=== PATIENT | female | born 1980 | race Caucasian/White ===

== ENCOUNTER 2022-08-08 07:52 | Outpatient (CLI) | payer BC, SELFPAY ==
[2022-08-08 15:11] LABS: Albumin* 4.4 g/dL (3.3-5.0)
[2022-08-08 15:12] LABS: Chloride* 105 mmol/L (96-114); Sodium* 140 mmol/L (135-149)
[2022-08-08 15:14] LABS: Bilirubin Total* 0.7 mg/dL (0.1-1.5); Carbon Dioxide* 28 mmol/L (20-32); Cholesterol* 176 mg/dL (90-199); Creatinine* 0.7 mg/dL (0.5-1.5); Estimated Glomerular Filt Rate 111 ml/min
[2022-08-08 15:15] LABS: Alanine Aminotransferase* 56 U/L (4-35); Alkaline Phosphatase* 47 U/L (40-150); Aspartate Amino Transferase* 36 U/L (12-35); Blood Urea Nitrogen* 14 mg/dL (5-24); Glucose* 113 mg/dL (60-115); HDL Cholesterol* 34 mg/dL (>=50); LDL Cholesterol Calculated 75 mg/dL (<100); Total Protein* 7.3 g/dL (6.0-8.3); Triglycerides* 337 mg/dL (40-149)
== END 2022-08-08 07:53 | disposition home or self-care (01) ==
PROVIDERS: PCP Physician Assistant Medical; Visit Provider Physician Assistant Medical
DX: Z00.00 Encounter for general adult medical examination without abnormal findings (principal); R79.89 Other specified abnormal findings of blood chemistry; E78.1 Pure hyperglyceridemia; R73.01 Impaired fasting glucose; I10 Essential (primary) hypertension
CPT/HCPCS: 80053; 80061

== ENCOUNTER 2023-01-11 14:16 | Outpatient (CLI) | payer BC, SELFPAY | END 2023-01-11 14:17 | disposition home or self-care (01) | PROVIDERS: PCP Physician Assistant Medical; Visit Provider Physician Assistant Medical | DX: R73.01 Impaired fasting glucose (principal); R79.89 Other specified abnormal findings of blood chemistry; I10 Essential (primary) hypertension; M54.50 Low back pain, unspecified; R00.2 Palpitations; R20.2 Paresthesia of skin | CPT/HCPCS: 80053; 82607; 82784; 83516; 84443; 86039; 86140; 86200; 86431; 86812 ==

== ENCOUNTER 2023-01-19 08:08 | Outpatient (CLI) | payer BC, SELFPAY ==
--- NOTE | 2023-01-19 08:15 | CRLHL7_ITS ---
For Patients: As a result of the Century Cures Act, medical imaging exams and procedure reports are released immediately into your electronic medical record. You may view this report before your referring provider. If you have questions, please contact your health care provider. INDICATION: Foot pain. COMPARISON: None provided. TECHNIQUE: Axial and coronal PD and PD fat sat and sagittal T1 and STIR sequences. FINDINGS: Periarticular tendons have appropriate caliber and signal with no tenosynovitis. Ligaments of the ankle are normal. No sinus tarsus syndrome. No fracture or bone lesion in the hindfoot or midfoot. Mild shallow subcortical marrow edema signal at the os calcis. Roughly 12 mm length of thickening of plantar fascia to a maximal thickness of 7-8 mm with mild patchy intermediate signal degeneration appearance without high-grade partial or full-thickness tear. No muscle atrophy. Lateral bundle looks normal. Degenerative subchondral sclerosis and small cysts at the dorsal margin of the 1st cuneiform articulation with metatarsal. Minimal marginal osteophytes. The other tarsometatarsal midfoot joints look normal. Trace nonspecific effusion at the calcaneocuboid joint. IMPRESSION: 1. Moderate probably subacute medial bundle plantar fasciitis. 2. Mild early onset degenerative or posttraumatic arthrosis dorsal margin of the 1st tarsometatarsal joint. Dictated by Hola Guzman MD @ 01/20/2023 1:29:13 PM (Electronically Signed)
== END 2023-01-19 08:09 | disposition home or self-care (01) ==
LOC: MRI 08:08
PROVIDERS: PCP Physician Assistant Medical; Visit Provider Physician Assistant Medical
DX: M79.671 Pain in right foot (principal); M19.071 Primary osteoarthritis, right ankle and foot
CPT/HCPCS: 73718

== ENCOUNTER 2023-04-06 12:31 | Outpatient (CLI) | payer BC, SELFPAY | END 2023-04-06 12:32 | disposition home or self-care (01) | PROVIDERS: PCP Physician Assistant Medical; Visit Provider Physician Assistant Medical | DX: I10 Essential (primary) hypertension (principal); M79.2 Neuralgia and neuritis, unspecified; R73.01 Impaired fasting glucose; R78.1 Finding of opiate drug in blood; R79.89 Other specified abnormal findings of blood chemistry | CPT/HCPCS: 82088; 82746; 83540; 83550; 84244; 84425 ==

== ENCOUNTER 2023-04-18 13:33 | Outpatient (CLI) | payer BC, SELFPAY ==
--- NOTE | 2023-04-18 13:45 | CRLHL7_ITS ---
For Patients: As a result of the Century Cures Act, medical imaging exams and procedure reports are released immediately into your electronic medical record. You may view this report before your referring provider. If you have questions, please contact your health care provider. INDICATION: Skin anesthesia. TECHNIQUE : Lumbar spine MRI without contrast. The following sequences were obtained: Sagittal T1, T2 weighted and STIR sequences. Axial T1 and T2 weighted sequences. COMPARISON: Lumbar spine radiographs from 01/11/2023. FINDINGS : Five lumbar type vertebral bodies, with the last fully formed disc space designated as L5-S1. Normal lumbar lordotic curve. No recent compression fracture or marrow replacing process. Lower cord/conus signal is normal. The conus terminates at a normal location. No intradural lesion. No extraspinal soft tissue abnormalities. Discs/Endplates: Mild disc height loss/disc desiccation and small Schmorl`s nodes at T12-L1, L1-2 and L3-4. Disc desiccation at L4-5. The remaining discs exhibit normal height and signal. Mild type 1 reactive marrow changes at L1-2 posteriorly and L3-4 anteriorly.. Findings at individual levels as follows: T11-12: No spinal canal or neural foraminal stenosis. T12-L1: Mild disc bulge with a small left central protrusion component which flattens the thecal sac. No spinal canal or neural foraminal stenosis. L1-2: Shallow left subarticular protrusion/osteophyte minimally flattens the thecal sac. No spinal canal or neural foraminal stenosis. L2-3: No spinal canal or neural foraminal stenosis. L3-4: Moderate disc bulge. Bilateral facet arthrosis. Mild spinal canal stenosis and mild bilateral neural foraminal stenosis. L4-5: Mild disc bulge. Bilateral low-grade facet arthrosis. No spinal canal or neural foraminal stenosis. L5-S1: No spinal canal or neural foraminal stenosis. Imaged SI joints: Within normal limits. Imaged sacrum: Within normal limits. IMPRESSION: 1. Scattered lumbar spondylosis without high-grade spinal canal/neural foraminal stenosis or chari impingement of neural structures. 2. At L1-2, active on chronic disc degeneration with mild type 1 reactive marrow changes along the posterior endplates. 3. At L3-4, mild spinal canal stenosis and mild bilateral neural foraminal stenosis. Dictated by Simba Palomino MD @ 04/19/2023 3:51:57 PM (Electronically Signed)
== END 2023-04-18 13:34 | disposition home or self-care (01) ==
LOC: MRI 13:34
PROVIDERS: PCP Physician Assistant Medical; Visit Provider Physician Assistant Medical
DX: R20.0 Anesthesia of skin (principal); R20.2 Paresthesia of skin; M51.36 Other intervertebral disc degeneration, lumbar region; M48.061 Spinal stenosis, lumbar region without neurogenic claudication
CPT/HCPCS: 72148

== ENCOUNTER 2023-08-02 20:58 | Outpatient (CLI) | payer BC, SELFPAY ==
--- NOTE | 2023-08-30 10:03 | W.PM.SLEEP ---
Sleep Study Details Details Interpreting Provider: Lauren Date of Sleep Study: 08/02/23 Sleep Study Details: STUDY TYPE:? Hospital-based attended BMI: 33 ORDERING PROvider Serg INDICATION:? Concerns about sleep apnea ? SLEEP SUMMARY:? 433.5 minutes total sleep time RESPIRATORY SUMMARY:? Mean oxygen awake 95 asleep 94, minimum 81. 5.1 minutes oxygen between 80 and 88% AHI 14.8, supine AHI 32, nonsupine AHI 5.7. Supine REM AHI 56.6 PERIODIC LIMB MOVEMENTS OF SLEEP:? None noted CARDIAC:? Awake 80, asleep 72. PVC noted IMPRESSION:? Mild to moderate obstructive sleep apnea with significant supine position and REM dependency RECOMMENDATION: Treatment options include CPAP, dental appliance and/or airway expansion surgery.
== END 2023-08-02 20:59 | disposition home or self-care (01) ==
LOC: SLEEP 20:58
PROVIDERS: PCP Physician Assistant Medical; Visit Provider Physician Assistant Medical
DX: G47.33 Obstructive sleep apnea (adult) (pediatric) (principal)
CPT/HCPCS: 95810

== ENCOUNTER 2023-11-13 10:02 | Outpatient (CLI) | payer BC, SELFPAY ==
--- OUTSIDE RECORDS SUMMARY | 2023-11-13 10:07 | XMS_ITS | Encounter Summary ---
Author Name Unknown Organization [place] Address [address] [place] [address]. [place] [address] Care Team Providers Care Rotary Driller Prospecting Name Role Phone [facility] Pr ovider Surya Shah MD Unavailable [phone] Encounter Details Date Type Department Care Team (Late st Contact Info) Description 11/11/2021 Orders Only [facility] [address] [place] [id number] Neelima Rangel MD [facility] [address] [address] Pre-operative laboratory examination (Primary Dx) Social History Tobacco Use Types Packs/Day Years Used Date Smoking Tobacco: Never Smokeless Tobacco: Never Alcohol Use Standard Drinks/Week Comments Yes 0 (1 standard drink = 0.6 oz pure alcohol) 2 glasses of wine weekly. none during Sex and Gender Information Value Date Recorded Sex Assigned at Female 11/12/2020 5:48 AM CDT Gender Identity Female 11/12/2020 5:48 AM CDT Sexual Orientation Straight 11/12/2020 5: 48 AM CDT documented as of this encounter Plan of Treatment Not on file documented as of this encounter Visit Diagnoses Diagnosis Pre-operative laboratory examination- Primary Pre-procedural laboratory examination documented in this encounter Care Teams Rotary Driller Prospecting Relationship Specialty Start Date End Date [facility] [address] [facility] [place] [address] PCP - General 08/02/13 Surya Shah MD [address] [facility] [place] [address] MD Ar[place]o 02/22/16 documented as of this encounter
--- OUTSIDE RECORDS SUMMARY | 2023-11-13 10:07 | XMS_ITS | Continuity of Care Document ---
Author Name Unknown Organization [facility] Address [address] [place] [address] Phone Care Team Providers Care Bit Tripoler Name Role Phone Mark Stephen Unavailable Unavailable Allergies, Adverse Reactions, Alerts Substance Reaction Status Criticality No Known Allergies Active No Inform ation Medications Medication Instructions Dosage Effective Dates (start - stop) Status Comments LOSARTAN-HYDROCHLOROTH IAZIDE (unknown strength) Not Available - Active Procedures Procedure Date Office/Outpatient Visit,[facility] 2022 Advance Directives Directive Yes / No Effective Date File Name No Information Encounters Encounter Description Practice Location Reason(s) For Visit Diagnoses Date Provider Providers Copied on Encounter Office/Outpat ient Visit,New, [facility], [address], [place], [place], [id number] , [place] tel:[phone] [facility] Spinal stenosis, lumbar region without neurogenic claudicationOther intervertebral disc degeneration, lumbar region 3 Panvica Mark. [facility], [address] [place] [address], [address], [place], [place], [id number] , [place]. tel:[phone] Referring Provider: Neelima Ulrich, [facility] [address] [place] [address], [address]. tel:[phone] Family History Family Member Type Diagnosis Age At Onset No Information Payers Payer name Insurance type Covered green party ID Authoriza timichelle(s) BCBS [id number] CCS/TPA BL [id number] Social History Type Description Quantity Date Captured Comments Alcohol Use Details Unknown Caffeine Use Details Unknown Tobacco Use Status Current non-smoker Smoking Status Never smoker Non-Smoking Tobacco Use Details : No Details Available : No Details Available Sex Female Chief Complaint And Reason For Visit No Information Reason For Referral Reason For Referral No Information History Of Present Illness Encounter Date Complaint History Of Prese nt Illness No Information Functional Status Date Functional Assessmen t No Information Instructions Date Instruction Additional Infor mation No Information Assessments Type Assessment Date assessment Spinal stenosis, lumbar region w ithout neurogenic claudication assessment Other intervertebral disc degene ration, lumbar region Patient Care Teams Name Effective Dates (start - stop) Status Members No Information
--- OUTSIDE RECORDS SUMMARY | 2023-11-13 10:07 | XMS_ITS | Referral Summary ---
Author Name Unknown Organization [facility] Address [address] [place] [address] Care Team Providers Care Blood Bank Assistant Name Role Phone Clinic, [facility] Pr ovider Surya Shah MD Unavailable [phone] Allergies Active Allergy Reactions Criticality Noted Date Comments Chocolate 09/28/2015 No Known Drug Allergy 02/03/2003 Medications Medication Sig Dispensed Refills Start Date End Date Status cetirizine (ZYRTEC) 10 MG tablet Take 10 mg by mouth daily Active ibuprofen (ADVIL,MOTRIN) 400 MG tabletIndications:S VD (spontaneous vaginal delivery) Take 1-2 tablets (400-800 mg) by mouth every 6 hours as needed for other (cramping) 120 tablet 09/30/2015 Active hydrochlorothiazide (HYDRODIURIL) 12.5 MG tablet Take 25 mg by mouth daily Active losartan (COZAAR) 25 MG tablet Take 100 mg by mouth daily Active oxyCODONE (ROXICODONE) 5 MG tabletIndications:A nal fissure Take 1 tablet (5 mg) by mouth every 6 hours as needed for moderate to severe pain 6 tablet 11/24/2021 Active diltiazem 2% in PLO gelIndications:Anal fissure Apply 120 clicks (30 g) topically 2 times daily 30 g 1 11/24/2021 Active Active Problems Problem Noted Date Diagnosed Date Gestational hypertension, unspecified trimester 10/01/2015 (spontaneous vaginal delivery) 09/30/2015 Labor and delivery indication for care or interv ention 09/28/2015 Status post normal delivery 06/13/2013 Supervision of normal IUP (i ntrauterine ) in multigravida 06/12/2013 Indication for care in labor or delivery 013 Sciatica of left side 05/20/2013 Left sided abdominal pain 04/17/2013 UTI (urinary tract infection) 02/17/2003 Overview: Problem list name updated by automated process. Provider to review Immunizations Name Administration Dates Next Due COVID-19 Vaccine (Pedro Luis) 11/13/2020 Influenza Vaccine >6 months,quad, PF 07/03/2015 TDAP (Adacel,Boostrix) 07/31/2015 Social History Tobacco Use Types Packs/Day Years Used Date Smoking Tobacco: Never Smokeless Tobacco: Never Alcohol Use Standard Drinks/Week Comments Yes 0 (1 standard drink = 0.6 oz pure alcohol) 4 glasses of wine weekly. none during Adolescent Education Answer Date Record ed Getting School Help Needed Not on file 04/01 Sex and Gender Information Value Date Recorded Sex Assigned at Female 11/12/2020 5:48 AM CDT Gender Identity Female 11/12/2020 5:48 AM CDT Sexual Orientation Straight 11/12/2020 5: 48 AM CDT Last Filed Vital Signs Vital Sign Reading Time Taken Comments Blood Pressure 131/79 11/24/2021 2:40 PM CDT Pulse 82 11/24/2021 2:40 PM CDT Temperature 37.2 ??C (99 ??F) 11/24/2021 1:30 PM CDT Respiratory Rate 18 11/24/2021 11:3 6 AM CDT Oxygen Saturation 99% 11/24/2021 2:40 PM CDT Inhaled Oxygen Concentration - - Weight 93.4 kg (205 lb 14.4 oz) 022 11:30 AM CDT Height 170.2 cm (5' 7) 11/24/2021 11:3 0 AM CDT Body Mass Index 32.25 11/24/2021 11:30 AM CDT Plan of Treatment Not on file Procedures Procedure Name Priority Date/Time Associated Diagnosis Comments GLUCOSE BY METER Routine 11/24/2021 11:3 9 AM CDT HIV ANTIGEN ANTIBODY COMBO Routine 02/19/2015 from Last 3 Months or Most Recently Relevant to Health Maintenance Results * Glucose by meter (11/24/2021 11:39 AM CDT) GLUCOSE BY METER POCT 99 70 - 99 mg/dL 11/24/2021 11:46 AM CDT LABORATORY POC Blood, Capillary BLOOD SPECIMEN / Unknown 11/24/2021 11:39 AM CDT 11/24/2021 11:46 AM CDT Neelima Rangel MD LAB - [facility] POCT LABORATORY [facility] Acute Care Lab [address] Lab (1st floor, no room number) [place] [address], [facility] [phone] * HIV Antigen Antibody Combo (02/19/2015) HIV Antigen Antibody Combo neg Blood specimen (specimen) Patient Reported LAB - BLOOD ORDERABL ES from Last 3 Months or Most Recently Relevant to Health Maintenance Care Teams Blood Bank Assistant Relationship Specialty Start Date End Date Clinic, [facility] [address] [place] [address] PCP - General 08/02/13 Surya Shah MD [address] [place] [address] Ophthalmology 02/22/16
--- OUTSIDE RECORDS SUMMARY | 2023-11-13 10:07 | XMS_ITS | Clinical Summary ---
Author Name Unknown Organization [facility] Address [address] [place] [address] Care Team Providers Care Presbyterian Clergy Name Role Phone Clinic, [facility] Pr ovider Surya Shah MD Unavailable [phone] Allergies Active Allergy Reactions Criticality Noted [...] >6 months,quad, PF 07/03/2015 TDAP (Adacel,Boostrix) 07/31/2015 Family History Medical History Relation Comments Cancer Maternal Grandfather Cancer Paternal Grandfather Cerebrovascular Disease Paternal Grandfather Hypertension Paternal Grandfather Cancer Paternal Grandmother Cerebrovascular Disease Paternal Grandmother Diabetes Paternal Grandmother Hypertension Paternal Grandmother Relation Status Comments Maternal Grandfather Paternal Grandfather Paternal Grandmother Social History Tobacco Use Types Packs/Day Years [...] 11/24/2021 11:30 AM CDT Plan of Treatment Health Maintenance Due Date Last Done Comments ADVANCE CARE PLANNING 1980 ANNUAL REVIEW OF HM ORDERS 1980 MAMMO SCREENING 1980 YEARLY PREVENTIVE VISIT 1980 HEPATITIS C SCREENING 1999 HEPATITIS B IMMUNIZATION (1 of 3 - 19+ 3-dose series) 01/22/2000 PAP 2002 LIPID 2021 COVID-19 Vaccine (2 - season) 2023 11/13/2020 PHQ-2 (once per calendar year) 2023 INFLUENZA VACCINE (Season Ended) 2024 04/10/2018, 04/10/2018, 07/03/2015, Additional history exists GLUCOSE 11/24/2024 11/24/2021, 10/2015, 09/28/2015, Additional history exists DTAP/TDAP/TD IMMUNIZATION (3 - Td or Tdap) 07/31/2025 07/31/2015, 04/25/2013 HIV SCREENING Completed 02/19/2015, 01/25, 11/02/2012 HPV IMMUNIZATION Aged Out No longer e ligible based on patient's age to complete this topic IPV IMMUNIZATION Aged Out No longer e ligible based on patient's age to complete this topic MENINGITIS IMMUNIZATION Aged Out No l onger eligible based on patient's age to complete this topic Pneumococcal Vaccine: Pediatrics (0 to 5 Years) and At-Risk Patients (6 to 64 Years) Aged Out No longer eligible based on patient's age to complete this topic RSV MONOCLONAL ANTIBODY Aged Out No l onger eligible based on patient's age to complete this topic Procedures Procedure Name Priority Date/Time Associated Diagnosis Comments GLUCOSE BY METER Routine 11/24/2021 11:3 9 AM CDT HIV ANTIGEN ANTIBODY COMBO Routine 02/19/2015 from Last 3 Months or Most Recently Relevant to Health Maintenance Results * Glucose by meter (11/24/2021 11:39 AM CDT) GLUCOSE BY METER POCT 99 70 - 99 mg/dL 11/24/2021 11:46 AM CDT RH LABORATORY POC Blood, Capillary BLOOD SPECIMEN / Unknown 11/24/2021 11:39 AM CDT 11/24/2021 11:46 AM CDT [facility]elima [facility]angel [facility] Acute Care Lab [address] Lab (1st floor, no room number) [place] [address], [facility] [phone] * HIV Antigen Antibody Combo (02/19/2015) HIV Antigen Antibody Combo neg Blood specimen (specimen) Patient Reported LAB - BLOOD ORDERABL ES from Last 3 Months or Most Recently Relevant to Health Maintenance Care Teams [facility] Clergy Relationship Specialty Start Date End Date Clinic, [facility] [place] [address] [place] [address] PCP - General 08/02/13 Surya Shah MD [address] [place] [address] Ophthalmology 02/22/16
--- OUTSIDE RECORDS SUMMARY | 2023-11-13 10:07 | XMS_ITS | Encounter Summary ---
Author Name Unknown Organization [place] Address [facility] [place] [address] Care Team Providers Care Spot Sprayer Name Role Phone Clinic, [facility] Pr ovider Surya Shah MD Unavailable [phone] Reason for Referral * - Closed Specialty Diagnoses / Procedures Referred By Khoa t Referred To Contact Diagnoses Increased nuchal translucency space on ultrasound [facility] [address] [place] [address] [address] [place] [address] Referral ID Status Reason Start Date Expiration Date Visits Re quested Visits Authorized [id number] Closed 03/26/2015 03/25/2016 1 1 Comments skylar 09/23/15 Thick NT on outside scan Reason for Visit * Reason Comments Consult Ultrasound Encounter Details Date Type Department Care Team (Late st Contact Info) Description 03/19/2015 Orders Only [facility] [place] [address] [facility] [address] [place] [address] Neelima Razo RN Increased nuchal translucency space on ultrasound (Primary Dx) Social History Tobacco Use Types Packs/Day Years Used Date Smoking Tobacco: Never Smokeless Tobacco: Never Alcohol Use Standard Drinks/Week Comments Yes 0 (1 standard drink = 0.6 oz pur e alcohol) 2 glasses of wine weekly. Comments Yes Sex and Gender Information Value Date Recorded Sex Assigned at Female 11/12/2020 5:48 AM CDT Gender Identity Female 11/12/2020 5:48 AM CDT Sexual Orientation Straight 11/12/2020 5: 48 AM CDT documented as of this encounter Plan of Treatment Scheduled Referrals Name Type Priority Associated Diagnoses Orde r Schedule [facility] Genetic Counseling Referral Routine Increased nuchal translucency space on ultrasound Expected: 03/26/2015 (Approximate), Expires: 03/19/2016 documented as of this encounter Results * [facility] US OB Complete 1st Tri Single (03/26/2015 3:14 PM CDT) Anatomical Region Laterality Modality Ultrasound 03/26/2015 2:57 PM CDT Impressions 03/26/2015 3:25 PM CDT IMPRESSION ----- Sonographic biometry agrees with gestational age predicted by LMP. The nuchal translucency measurement is within the normal range. The nasal bone is present. Narrative 03/26/2015 3:25 PM CDT 1st Trim ----- Pat. Name: STACEY SEAY Study Date: 03/26/2015 2:57pm Pat. NO: [id number] Referring ??: ROLAND SOUZA Site: [facility] Filler: Gricelda [facility] RDMS : 1980 Age: 35 ----- INDICATION ----- Thickened nuchal translucency on outside US. METHOD ----- Transabdominal ultrasound examination. ----- Keith . Number of fetuses: 1. DATING ----- ? Date ?Details ?Gest. age ?SKYLAR LMP ?12/17/2014 ?Cycle: regular cycle ?14 w + 1 d ? 09/23/2015 U/S ? 03/26/2015 ? based upon CRL ?14 w + 1 d ? 09/23/2015 Assigned dating ?Dating performed on 03/26/2015, based on the LMP ?14 w + 1 d ? 09/23/2015 GENERAL EVALUATION ----- Cardiac activity: present. Placenta: anterior. Amniotic fluid: normal amount. BIOMETRY ----- CRL ?81.2 ?mm ?14w 1d ? Hadlock NT ?2.4 ?mm ? FHR ?161 ? bpm ? ANATOMY ----- Head ?visualized ?Abdom. wall ?visualized Face ?visualized ?Stomach ? visualized ?Bladder ?visualized ?Upper extrem. ? visualized ?Lower extrem. ? visualized MATERNAL STRUCTURES ----- Cervix ?Visualized, Appears Closed. Right Ovary ?Not visualized. Left Ovary ?Not visualized. RECOMMENDATION ----- We discussed the findings on today's ultrasound with the patient. Given the previously increased NT we recommend a comprehensive ultrasound at 18 weeks and echo at 20-22 weeks. Return to primary provider for continued care. Thank-you for the opportunity to participate in the care of this patient. If you have questions regarding today's evaluation or if we can be of further service, please contact the [facility]. anomalies may be present but not detected. Procedure Note Tony Wetzel MD - 03/26/2015 1st Trim ----- Pat. Name:GINO SEAYtuddebbie Date:03/26/2015 2:57pm Pat. NO: [id number] MD:ROLAND SOUZA [facility] RDMS :1980Age:35 ----- INDICATION ----- Thickened nuchal translucency on outside US. METHOD ----- Transabdominal ultrasound examination. ----- Keith . Number of fetuses: 1. DATING ----- DateDetailsGest. age SKYLAR LMP 12/17/2014Cycle: regular cycle14 w + 1 d 09/23/2015 U/S 03/26/2015based upon CRL14 w + 1 d 09/23/2015 Assigned dating Dating performed on 03/26/2015, based onthe LMP 14 w+ 1 d 09/23/2015 GENERAL EVALUATION ----- Cardiac activity: present. Placenta: anterior. Amniotic fluid: normal amount. BIOMETRY ----- CRL 81.2 mm14w 1d Hadlock NT 2.4 mm FHR 161 bpm ANATOMY ----- Head visualizedAbdom. wallvisualized Face visualizedStomachvisualized Bladdervisualized Upper extrem.visualized Lower extrem.visualized MATERNAL STRUCTURES ----- Cervix Visualized, Appears Closed. Right Ovary Not visualized. Left Ovary Not visualized. RECOMMENDATION ----- We discussed the findings on today's ultrasound with the patient. Given the previously increased NT we recommend a comprehensive ultrasoundat 18 weeks and echo at 20-22 weeks. Return to primary provider forcontinued care. Thank-you for the opportunity to participate in the care of this patient.If you have questions regarding today's evaluation or if we can be offurther service, please contact the [facility]. anomalies may be present but not detected. IMPRESSION IMPRESSION ----- Sonographic biometry agrees with gestational age predicted by LMP. Thenuchal translucency measurement is within the normal range. The nasal boneis present. Candace Archer MD [facility] US ORDERABLE S documented in this encounter Visit Diagnoses Diagnosis Increased nuchal translucency space on ultrasound- Primary Increased nuchal translucency space on ultrasound documented in this encounter Care Teams Spot Sprayer Relationship Specialty Start Date End Date [facility], [facility] [address] [facility] [place] [address] PCP - General 08/02/13 Surya Shah MD [address] [facility] [place] [address] Ophthalmology 02/22/16 documented as of this encounter
--- NOTE | 2023-11-13 10:15 | MM_ITS ---
Patient: JAVON SEAY Facility:?[facility] Patient ID:?[id number] Site Patient ID:?[id number] Site :?1980 Study:?XRay-Breast Bilateral 3D W/CAD-11/13/2023 10:23:37 AM Ordering Physician:Cindy Final Report: BILATERAL SCREENING MAMMOGRAM WITH COMPUTER-AIDED DETECTION AND TOMOSYNTHESIS TECHNIQUE: CC and MLO views were obtained. These mammographic images have been obtained using full-field digital technique. These mammographic images were interpreted with the benefit of computer-aided detection. Breast Tomosynthesis was used in this interpretation. COMPARISON FILM: 11/10/22, 11/16/22(RT). FINDINGS: The breasts are heterogeneously dense, which may obscure small masses. IMPRESSION: There is no radiographic evidence for malignancy. ASSESSMENT: BI-RADS Category 2: Benign RECOMMENDATION: Routine screening mammogram in 1 year. A lay language report of this examination will be provided to the patient. Sohail Esteban M.D. Diagnostic Radiologist [email or web address] DSM/sp R& Transcribed: 6:35 p.m. SP/Dictated by: Sohail Esteban MD @ 11/13/2023 11:54:00 AM Signed by:?Sohail Esteban MD @11/13/2023 8:47:23 PM (Electronic Signature)
== END 2023-11-13 10:03 | disposition home or self-care (01) ==
PROVIDERS: PCP Physician Assistant Medical; Visit Provider Physician Assistant Medical
DX: Z12.31 Encounter for screening mammogram for malignant neoplasm of breast (principal); R92.2 Inconclusive mammogram
CPT/HCPCS: 77063; 77067

== ENCOUNTER 2024-01-15 12:18 | Outpatient (CLI) | payer BC, SELFPAY ==
--- OUTSIDE RECORDS SUMMARY | 2024-01-15 12:25 | XMS_ITS | Continuity of Care Document ---
Author Organization [facility] Address [address] [place] [address] Phone Care Team Providers Care Director Of Orthopedics Name Role Phone Mark Stephen Unavailable Unavailable Allergies, Adverse Reactions, Alerts Substance Reaction Status Criticality No Known Allergies Active No Inform ation Medications Medication Instructions Dosage Effective Dates (start - stop) Status Comments LOSARTAN-HYDROCHLOROTH IAZIDE (unknown strength) Not Available - Active Procedures Procedure Date Office/Outpatient Visit,[facility] 2022 Advance Directives Directive Yes / No Effective Date File Name No Information Encounters Encounter Description Practice Location Reason(s) For Visit Diagnoses Date Provider Providers Copied on Encounter Office/Outpat ient Visit,[place] [facility], [address], [place], [place], [id number] , [place] tel:[phone] [facility] Spinal stenosis, lumbar region without neurogenic claudicationOther intervertebral disc degeneration, lumbar region 3 Panvica Mark. [facility], [address] [place] [address], [address], [place], [place], [id number] , [place]. tel:[phone] Referring Provider: Neelima Ulrich, [facility] [address] [place] [address], [address]. tel:[phone] Family History Family Member Type Diagnosis Age At Onset No Information Payers Payer name Insurance type Covered libertarian ID Authorclementea timichelle(s) BCBS [id number] CCS/TPA BL [id number] Social History Type Description Quantity Date Captured [...]
--- OUTSIDE RECORDS SUMMARY | 2024-01-15 12:25 | XMS_ITS | Referral Summary ---
Author Organization [facility] Address [address] [place] [address] Care Team Providers Care Nurse Recruiter Name Role Phone Clinic, [facility] Pr ovider Surya Shah MD Unavailable [phone] Allergies Active Allergy Reactions Criticality Noted [...] AM CDT Neelima Rangel MD LAB - [facility] [place] [facility] Lab [address] [facility] Lab (1st floor, no room number) [place] [address], [facility] [phone] * HIV Antigen Antibody Combo (02/19/2015) HIV Antigen Antibody Combo neg Blood specimen (specimen) Patient Reported LAB - BLOOD ORDERABL ES from Last 3 Months or Most Recently Relevant to Health Maintenance Care Teams Nurse Recruiter Relationship Specialty Start Date End Date Clinic, [facility] [address] [place] [address] PCP - General 08/02/13 Surya Shah MD [address] [place] [address] Ophthalmology 02/22/16
--- OUTSIDE RECORDS SUMMARY | 2024-01-15 12:25 | XMS_ITS | Encounter Summary ---
Author Organization [facility] Address [address] [place] [address]. [place] [address] Care Team Providers Care Engineering Operator Name Role Phone [facility] Pr ovider Surya Shah MD Unavailable [phone] Encounter Details Date Type Department Care Team (Late st Contact Info) Description 11/11/2021 Orders Only [facility] [address] [place] [id number] Neelima Rangel MD [facility] [address] [address] Pre-operative laboratory examination (Primary Dx) Social History [...] examination documented in this encounter Care Teams Engineering Operator Relationship Specialty Start Date End Date [facility] [address] [facility] [place] [address] PCP - General 08/02/13 Surya Shah MD [address] [facility] [place] [address] Ophthalmology 02/22/16 documented as of this encounter
--- OUTSIDE RECORDS SUMMARY | 2024-01-15 12:25 | XMS_ITS | Encounter Summary ---
Author Organization [facility] Address [address] [place] [address]. [place] [address] Care Team Providers Care Welt Cutter Name Role Phone Clinic, [facility] Pr ovider Surya Shah MD Unavailable [phone] Reason for Referral * - Closed Specialty Diagnoses / Procedures Referred By Khoa mayen Referred To Contact Diagnoses Increased nuchal translucency space on ultrasound [facility] [address] [place] [address] Referral ID Status Reason Start Date Expiration Date Visits Re quested Visits Authorized [id number] Closed 03/26/2015 03/25/2016 1 1 Comments skylar 09/23/15 Thick NT on outside scan Reason for Visit * Reason Comments Consult Ultrasound Encounter Details Date Type Department Care Team (Late st Contact Info) Description 03/19/2015 Orders Only [facility] Portal [address] [place] [address] Neelima Razo [...] Type Priority Associated Diagnoses Orde r Schedule [facility] Genetic Counseling Referral Routine Increased nuchal translucency space on ultrasound Expected: 03/26/2015 (Approximate), Expires: 03/19/2016 documented as of this encounter Results * [facility] US OB Complete 1st Tri Single [...] SEAY Study Date: 03/26/2015 2:57pm Pat. NO: [id number] Referring ??: ROLAND SOUZA Site: [facility] Aerial Sprayer: Gricelda Patrick RDMS : 1980 Age: 35 [...] MD - 03/26/2015 1st Trim ----- Pat. Name:Gregory SEAY Date:03/26/2015 2:57pm Pat. NO: [id number] MD:ROLAND SOUZA [facility] Patrick RDMS :1980Age:35 ----- INDICATION ----- [...] The nasal boneis present. Candace Archer MD [facility] US ORDERABLE S documented in this encounter Visit Diagnoses Diagnosis Increased nuchal translucency space on ultrasound- Primary Increased nuchal translucency space on ultrasound documented in this encounter Care Teams Welt Cutter Relationship Specialty Start Date End Date [facility] [address] [facility] [place] [address] PCP - General 08/02/13 Surya Shah MD [address] [facility] [place] [address] Ophthalmology 02/22/16 documented as of this encounter
--- OUTSIDE RECORDS SUMMARY | 2024-01-15 12:25 | XMS_ITS | Clinical Summary ---
Author Organization [facility] Address [address] [place] [address] Care Team Providers Care Special Client Bus Driver Name Role Phone Clinic, [facility] Pr ovider Surya Shah MD Unavailable Allergies Active Allergy Reactions Criticality Noted Date [...] (once per calendar year) 2023 INFLUENZA VACCINE (#1) 2024 8, 04/10/2018, 07/03/2015, Additional history exists GLUCOSE 11/24/2024 11/24/2021, 04/0 10/2015, 09/28/2015, Additional history exists DTAP/TDAP/TD IMMUNIZATION [...] AM CDT Neelima Rangel MD LAB - [facility] Acute Care Lab [address] Lab (1st floor, no room number) [place] [address], [facility] [phone] * HIV Antigen Antibody Combo (02/19/2015) HIV Antigen Antibody Combo neg Blood specimen (specimen) Patient Reported LAB - BLOOD ORDERABL ES from Last 3 Months or Most Recently Relevant to Health Maintenance Care Teams Special Client Bus Driver Relationship Specialty Start Date End Date Clinic, [facility] [place] [address] [place] [address] PCP - General 08/02/13 Surya Shah MD [address] [place] [address] Ophthalmology 02/22/16
== END 2024-01-15 12:19 | disposition home or self-care (01) ==
LOC: LKVREF 12:23
PROVIDERS: PCP Physician Assistant Medical; Visit Provider Family Medicine
DX: L28.2 Other prurigo (principal); I10 Essential (primary) hypertension; R60.0 Localized edema; R79.89 Other specified abnormal findings of blood chemistry
CPT/HCPCS: 80053

== ENCOUNTER 2024-02-14 11:52 | Outpatient (CLI) | payer BC, SELFPAY | END 2024-02-14 11:53 | disposition home or self-care (01) | PROVIDERS: PCP Physician Assistant Medical; Visit Provider Physician Assistant Medical | DX: Z00.00 Encounter for general adult medical examination without abnormal findings (principal); I10 Essential (primary) hypertension; E78.1 Pure hyperglyceridemia; R73.01 Impaired fasting glucose | CPT/HCPCS: 82607 ==

== ENCOUNTER 2024-11-21 14:12 | Outpatient (CLI) | payer BC, SELFPAY ==
--- NOTE | 2024-11-21 14:40 | CRLHL7_ITS ---
For Patients: As a result of the Century Cures Act, medical imaging exams and procedure reports are released immediately into your electronic medical record. You may view this report before your referring provider. If you have questions, please contact your health care provider. INDICATION: SCREENING MAMMOGRAM, ASYMPTOMATIC 44 Y/O FEMALE COMPARISON: 11/13/2023, 11/10/2022 TECHNIQUE: Digital mammogram in CC and MLO projections including computer-aided detection (CAD) and tomosynthesis. BREAST COMPOSITION: The breasts are heterogeneously dense, which may obscure small masses. FINDINGS: No suspicious findings. ASSESSMENT: BI-RADS 2 Benign RECOMMENDATION: Annual screening mammogram. A lay language report of this examination will be provided to the patient. Dictated by: Sohail Esteban MD @ 11/22/2024 13:03:31 (Electronically Signed)
== END 2024-11-21 14:13 | disposition home or self-care (01) ==
LOC: MAMMO 14:13
PROVIDERS: PCP Physician Assistant Medical; Visit Provider Physician Assistant Medical
DX: Z12.31 Encounter for screening mammogram for malignant neoplasm of breast (principal); R92.333 Mammographic heterogeneous density, bilateral breasts
CPT/HCPCS: 77063; 77067

== ENCOUNTER 2025-04-22 09:40 | Outpatient (CLI) | payer BC, SELFPAY | END 2025-04-22 09:41 | disposition home or self-care (01) | LOC: NFLDREF 04-24 10:16 | PROVIDERS: PCP Physician Assistant Medical; Referring Provider Physician Assistant Medical; Visit Provider Physician Assistant Medical | DX: E78.1 Pure hyperglyceridemia (principal); R73.01 Impaired fasting glucose; R79.89 Other specified abnormal findings of blood chemistry; I10 Essential (primary) hypertension; R20.0 Anesthesia of skin; E66.9 Obesity, unspecified; Z13.9 Encounter for screening, unspecified | CPT/HCPCS: 80053; 80061; 82306; 84443 ==

== ENCOUNTER 2025-04-25 13:52 | Outpatient (CLI) | payer BC, SELFPAY ==
[2025-04-25 23:28] LABS: Chlamydia DNA Amplified* NOT DETECTED (No Detected); GC DNA Amplified* NOT DETECTED (No Detected)
[2025-04-28 18:00] LABS: HPV Source Cervix
[2025-05-01 08:37] LABS: Pap Test Digital Imaging Done
== END 2025-04-25 13:53 | disposition home or self-care (01) ==
PROVIDERS: PCP Physician Assistant Medical; Visit Provider Physician Assistant Medical
DX: Z00.00 Encounter for general adult medical examination without abnormal findings (principal); R20.0 Anesthesia of skin; R20.2 Paresthesia of skin
CPT/HCPCS: 82607; 82728; 82784; 86140; 86231; 86258; 86364; 86376; 87491; 87591; 87624; 87625; 88141; 88142; 88175